=== PATIENT | female | born 1955 | race American Indian/Alaskan Native ===

== ENCOUNTER 2017-10-23 17:14 | Emergency (ER) | payer OTHER ==
[2017-10-23] MEDS ORDERED: MOTRIN PO ONE (21:51)
--- NOTE | 2017-10-23 21:51 | Emergency Department Report ---
ED ENT HPI - General Chief complaint: Earache Stated complaint: EAR PAIN Time Seen by Provider: 10/23/17 21:47 Source: patient Mode of arrival: Ambulatory Limitations: No Limitations - History of Present Illness Initial comments: 62-year-old female comes in for evaluation of right earache 2 days. Patient reports that she was using a zenaida pin to clean her ears out and thinks she went to far. Patient reports that she's been having pussy drainage from right ear. Patient denies any blood coming from right ear. She reports she has been having a low-grade fever no nausea no vomiting does admit to balance been off. She denies any falls. MD complaint: ear pain -: days(s) (2) Location: R ear Severity: moderate Severity scale (0 -10): 5 Quality: aching, sharp Consistency: constant Improves with: none Associated Symptoms: fever (low-grade), hearing loss, discharge from ear - Related Data Home Medications Medication Instructions Recorded Confirmed Last Taken Aspirin [Aspirin BABY CHEW TAB] 81 mg PO BID 04/19/13 04/19/13 04/19/13 09:00 Atorvastatin Calcium [Lipitor] 04/19/13 04/19/13 Unknown Carvedilol [Coreg] 12.5 mg PO BID 04/19/13 04/19/13 04/19/13 09:00 [place]-3/Dha/Epa/Fish Oil [Fish Oil] 1,000 mg PO 04/19/13 04/19/13 Unknown Sertraline [Zoloft] 50 mg PO DAILY 04/19/13 04/19/13 04/19/13 09:00 amLODIPine [Norvasc] 5 mg PO DAILY 04/19/13 04/19/13 04/19/13 18:00 cloNIDine [Catapres] 0.1 mg PO DAILY 04/19/13 04/19/13 04/18/13 23:30 metFORMIN [Glucophage] 500 mg PO BID 04/19/13 04/19/13 04/19/13 11:00 Previous Rx's Medication Instructions Recorded Last Taken Type Amoxicillin/Potassium Clav 1 each PO BID #20 tablet 10/23/17 Unknown Rx [Augmentin 875-125 Tablet] Ciprofloxacin 0.2%(Nf) 4 drops AD BID 7 Days #1 bottle 10/23/17 Unknown Rx [Ciprofloxacin Otic 0.2%(Nf)] Allergies Allergy/AdvReac Type Severity Reaction Status Date / Time codeine Allergy Hives Verified 04/19/13 20:43 ED Dental HPI - General Chief complaint: Earache Stated complaint: EAR PAIN Time Seen by Provider: 10/23/17 21:47 Source: patient Mode of arrival: Ambulatory Limitations: No Limitations - Related Data Home Medications Medication Instructions Recorded Confirmed Last Taken Aspirin [Aspirin BABY CHEW TAB] 81 mg PO BID 04/19/13 04/19/13 04/19/13 09:00 Atorvastatin Calcium [Lipitor] 04/19/13 04/19/13 Unknown Carvedilol [Coreg] 12.5 mg PO BID 04/19/13 04/19/13 04/19/13 09:00 [place]-3/Dha/Epa/Fish Oil [Fish Oil] 1,000 mg PO 04/19/13 04/19/13 Unknown Sertraline [Zoloft] 50 mg PO DAILY 04/19/13 04/19/13 04/19/13 09:00 amLODIPine [Norvasc] 5 mg PO DAILY 04/19/13 04/19/13 04/19/13 18:00 cloNIDine [Catapres] 0.1 mg PO DAILY 04/19/13 04/19/13 04/18/13 23:30 metFORMIN [Glucophage] 500 mg PO BID 04/19/13 04/19/13 04/19/13 11:00 Previous Rx's Medication Instructions Recorded Last Taken Type Amoxicillin/Potassium Clav 1 each PO BID #20 tablet 10/23/17 Unknown Rx [Augmentin 875-125 Tablet] Ciprofloxacin 0.2%(Nf) 4 drops AD BID 7 Days #1 bottle 10/23/17 Unknown Rx [Ciprofloxacin Otic 0.2%(Nf)] Allergies Allergy/AdvReac Type Severity Reaction Status Date / Time codeine Allergy Hives Verified 04/19/13 20:43 ED Review of Systems ROS: Stated complaint: EAR PAIN Other details as noted in HPI Constitutional: fever (low-grade). denies: chills Eyes: denies: eye pain, eye discharge, vision change ENT: ear pain, hearing loss Respiratory: denies: cough, shortness of breath, wheezing Cardiovascular: denies: chest pain, palpitations Endocrine: no symptoms reported Gastrointestinal: denies: abdominal pain, nausea, diarrhea ED Past Medical Hx - Past Medical History Previous Medical History?: Yes Hx Hypertension: Yes Hx Diabetes: Yes Additional medical history: Hx of mitroval prolaspe, Elevated cholesterol, insomnia - Surgical History Past Surgical History?: Yes Additional Surgical History: heart ablation - Social History Smoking Status: Never Smoker Substance Use Type: None - Medications Home Medications: Home Medications Medication Instructions Recorded Confirmed Last Taken Type Aspirin [Aspirin BABY CHEW TAB] 81 mg PO BID 04/19/13 04/19/13 04/19/13 09:00 History Atorvastatin Calcium [Lipitor] 04/19/13 04/19/13 Unknown History Carvedilol [Coreg] 12.5 mg PO BID 04/19/13 04/19/13 04/19/13 09:00 History [place]-3/Dha/Epa/Fish Oil [Fish Oil] 1,000 mg PO 04/19/13 04/19/13 Unknown History Sertraline [Zoloft] 50 mg PO DAILY 04/19/13 04/19/13 04/19/13 09:00 History amLODIPine [Norvasc] 5 mg PO DAILY 04/19/13 04/19/13 04/19/13 18:00 History cloNIDine [Catapres] 0.1 mg PO DAILY 04/19/13 04/19/13 04/18/13 23:30 History metFORMIN [Glucophage] 500 mg PO BID 04/19/13 04/19/13 04/19/13 11:00 History Amoxicillin/Potassium Clav 1 each PO BID #20 tablet 10/23/17 Unknown Rx [Augmentin 875-125 Tablet] Ciprofloxacin 0.2%(Nf) 4 drops AD BID 7 Days #1 bottle 10/23/17 Unknown Rx [Ciprofloxacin Otic 0.2%(Nf)] ED Physical Exam - General Limitations: No Limitations General appearance: alert, in no apparent distress - Head Head exam: Present: atraumatic, normocephalic - Expanded ENT Exam Expanded TM/Canal exam: Erythema: Right TM (canal to the point where cannot appreciate the tympanic membrane), Mastoid Tenderness: Right TM, Canal Discharge: Right TM , Canal Tenderness: Right TM - Neck Neck exam: Present: full ROM. Absent: tenderness - Respiratory Respiratory exam: Present: normal lung sounds bilaterally. Absent: respiratory distress - Cardiovascular Cardiovascular Exam: Present: regular rate, normal rhythm. Absent: systolic murmur, diastolic murmur, rubs, gallop ED Course Vital Signs 10/23/17 17:50 Temperature 99.3 F Pulse Rate 100 H Respiratory 17 Rate Blood Pressure 118/65 O2 Sat by Pulse 97 Oximetry ED Medical Decision Making - Medical Decision Making Patient's been evaluated by this provider fast track. Was able to place the ear wick into the right ear Discussed the patient outpatient oral medication as well as eardrops since she appears to have a little bit of swelling to the mastoid. Discussed the patient I will refer her to ear nose and throat for further evaluation. Patient should take Tylenol or Motrin for pain. Critical care attestation.: If time is entered above; I have spent that time in minutes in the direct care of this critically ill patient, excluding procedure time. ED Disposition Clinical Impression: Mastoiditis of right side Otitis externa Qualifiers: Otitis externa type: unspecified type Chronicity: acute Laterality: right Qualified Code(s): H60.501 - Unspecified acute noninfective otitis externa, right ear Disposition: - TO HOME OR SELFCARE Is pt being admited?: No Does the pt Need Aspirin: No Condition: Stable Instructions: Otitis Externa (ED), Mastoiditis in Children (ED) Additional Instructions: Take antibiotics as prescribed. You can take Tylenol or Motrin for pain. Please avoid swimming and getting your ears wet. Please follow-up with the ear nose and throat provider. Prescriptions: Amoxicillin/Potassium Clav [Augmentin 875-125 Tablet] 1 each PO BID #20 tablet Ciprofloxacin 0.2%(Nf) [Ciprofloxacin Otic 0.2%(Nf)] 4 drops AD BID 7 Days #1 bottle Referrals: ROSLYN GODINEZ MD [Primary Care Provider] - 3-5 Days ENT [facility] [Provider Group] - 3-5 Days Forms: Work/School Release Form(ED)
[2017-10-23 22:26] VITALS: BP 166/76
== END 2017-10-23 22:23 | disposition home or self-care (01) ==
LOC: ED 17:14
DX: H70.91 Unspecified mastoiditis, right ear (principal); H60.501 Unspecified acute noninfective otitis externa, right ear; I10 Essential (primary) hypertension; E11.9 Type 2 diabetes mellitus without complications; Z88.5 Allergy status to narcotic agent; Z79.82 Long term (current) use of aspirin
CPT/HCPCS: 99282

== ENCOUNTER 2019-02-03 04:06 | Emergency (ER) | payer OTHER ==
--- NOTE | 2019-02-03 04:51 | XRay Report ---
CHEST 1 VIEW 02/03/2019 4:37 AM INDICATION / CLINICAL INFORMATION: Chest Pain. COMPARISON: None available. FINDINGS: SUPPORT DEVICES: None. HEART / MEDIASTINUM: No significant abnormality. LUNGS / PLEURA: No significant pulmonary or pleural abnormality. No pneumothorax. ADDITIONAL FINDINGS: No significant additional findings. IMPRESSION: 1. No acute findings. Signer Name: Sandro Villanueva MD Signed: 02/03/2019 4:47 AM Workstation Name: [id number]
[2019-02-03 05:19] LABS: Basophils % (Auto) 0.4 % (0.0-1.8); Eosinophils # (Auto) 0.2 K/mm3 (0.0-0.4); Hematocrit 40.1 % (30.3-42.9); Hemoglobin 13.4 gm/dl (10.1-14.3); Lymphocytes # (Auto) 2.5 K/mm3 (1.2-5.4); Lymphocytes % (Auto) 30.3 % (13.4-35.0); Mean Corpuscular HGB Conc 34 % (30-34); Mean Corpuscular Volume 90 fl (79-97); Monocytes # (Auto) 0.7 K/mm3 (0.0-0.8); Platelet Count 239 K/mm3 (140-440); Red Blood Count 4.46 M/mm3 (3.65-5.03); Red Cell Distribution Width 14.2 % (13.2-15.2)
[2019-02-03 05:41] LABS: BUN/Creatinine Ratio 14; Blood Urea Nitrogen 10 mg/dL (7-17); Calcium 9.4 mg/dL (8.4-10.2); Hemolysis Index 2
[2019-02-03] MEDS ORDERED: IBUPROFEN 800 MG TAB PO ONE (06:17)
--- NOTE | 2019-02-03 06:43 | Emergency Department Report ---
ED Chest Pain HPI - General Chief Complaint: Chest Pain Stated Complaint: CHEST PAIN, HEADACHES Time Seen by Provider: 02/03/19 06:03 Source: patient Mode of arrival: Ambulatory Limitations: No Limitations - History of Present Illness Initial Comments: 63-year-old -[place] female presents to the emergency department from home with a complaint of some left-sided chest pain. Overall this has been going on intermittently over the past few days but it started this morning around 3 AM. The pain does not radiate. It is sharp. Patient says that the pain is sometimes reproducible depending on how she moves. She denies any nausea, vomiting, shortness of breath, back pain, diaphoresis, fever. Patient did not take anything for her symptoms prior to presentation. Patient also complains of some chronic palpitations and chronic sinus headache. She has not taken anything for any of her symptoms prior to arrival today. She has a past medical history of diabetes, hypertension, mitral valve prolapse, elevated cholesterol and has a previous heart ablation for those palpitations. She denies any tobacco or illicit drug use. No recent travel or sick contacts at home. Her primary care physician is Dr. Cassius Hankins and her chief security officer is Dr. Eric Hankins. Severity scale (0 -10): 1 - Related Data Home Medications Medication Instructions Recorded Confirmed Last Taken Aspirin [Aspirin BABY CHEW TAB] 81 mg PO BID 04/19/13 04/19/13 04/19/13 09:00 Atorvastatin Calcium [Lipitor] 04/19/13 04/19/13 Unknown Carvedilol [Coreg] 12.5 mg PO BID 04/19/13 04/19/13 04/19/13 09:00 [place]-3/Dha/Epa/Fish Oil [Fish Oil] 1,000 mg PO 04/19/13 04/19/13 Unknown Sertraline [Zoloft] 50 mg PO DAILY 04/19/13 04/19/13 04/19/13 09:00 amLODIPine [Norvasc] 5 mg PO DAILY 04/19/13 04/19/13 04/19/13 18:00 cloNIDine [Catapres] 0.1 mg PO DAILY 04/19/13 04/19/13 04/18/13 23:30 metFORMIN [Glucophage] 500 mg PO BID 04/19/13 04/19/13 04/19/13 11:00 Previous Rx's Medication Instructions Recorded Last Taken Type Amoxicillin/Potassium Clav 1 each PO BID #20 tablet 10/23/17 Unknown Rx [Augmentin 875-125 Tablet] Ciprofloxacin 0.2%(Nf) 4 drops AD BID 7 Days #1 bottle 10/23/17 Unknown Rx [Ciprofloxacin Otic 0.2%(Nf)] Allergies Allergy/AdvReac Type Severity Reaction Status Date / Time codeine Allergy Hives Verified 04/19/13 20:43 Heart Score - HEART Score History: Slightly suspicious EKG: Normal Age: 45-65 Risk factors: > 3 risk factors or hx of atherosclerotic disease Troponin: < normal limit HEART Score: 3 - Critical Actions Critical Actions: 0-3 pts:0.9-1.7%risk of adverse cardiac event.Candidate for discharge ED Review of Systems ROS: Stated complaint: CHEST PAIN, HEADACHES Other details as noted in HPI Comment: All other systems reviewed and negative Constitutional: denies: chills, fever Eyes: denies: eye pain, vision change ENT: denies: ear pain, throat pain Respiratory: denies: cough, shortness of breath Cardiovascular: chest pain, palpitations Gastrointestinal: denies: abdominal pain, vomiting Genitourinary: denies: dysuria, discharge Musculoskeletal: denies: back pain, arthralgia Skin: denies: rash, lesions Neurological: headache. denies: weakness, numbness, paresthesias ED Past Medical Hx - Past Medical History Previous Medical History?: Yes Hx Hypertension: Yes Hx Diabetes: Yes Additional medical history: Hx of mitroval prolaspe, Elevated cholesterol, insomnia - Surgical History Past Surgical History?: Yes Additional Surgical History: heart ablation - Social History Smoking Status: Never Smoker Substance Use Type: None - Medications Home Medications: Home Medications Medication Instructions Recorded Confirmed Last Taken Type Aspirin [Aspirin BABY CHEW TAB] 81 mg PO BID 04/19/13 04/19/13 04/19/13 09:00 History Atorvastatin Calcium [Lipitor] 04/19/13 04/19/13 Unknown History Carvedilol [Coreg] 12.5 mg PO BID 04/19/13 04/19/13 04/19/13 09:00 History [place]-3/Dha/Epa/Fish Oil [Fish Oil] 1,000 mg PO 04/19/13 04/19/13 Unknown History Sertraline [Zoloft] 50 mg PO DAILY 04/19/13 04/19/13 04/19/13 09:00 History amLODIPine [Norvasc] 5 mg PO DAILY 04/19/13 04/19/13 04/19/13 18:00 History cloNIDine [Catapres] 0.1 mg PO DAILY 04/19/13 04/19/13 04/18/13 23:30 History metFORMIN [Glucophage] 500 mg PO BID 04/19/13 04/19/13 04/19/13 11:00 History Amoxicillin/Potassium Clav 1 each PO BID #20 tablet 10/23/17 Unknown Rx [Augmentin 875-125 Tablet] Ciprofloxacin 0.2%(Nf) 4 drops AD BID 7 Days #1 bottle 10/23/17 Unknown Rx [Ciprofloxacin Otic 0.2%(Nf)] ED Physical Exam - General Limitations: No Limitations - Other Other exam information: GENERAL: The patient is well-developed well-nourished. HENT: Normocephalic. Atraumatic. Patient has moist mucous membranes. EYES: Extraocular motions are intact. Pupils equal reactive to light bilaterally. NECK: Supple. Trachea is midline. CHEST/LUNGS: Clear to auscultation. There is no respiratory distress noted. There is some reproducible tenderness to palpation along the left side of the chest. No crepitus or deformity. HEART/CARDIOVASCULAR: Regular. There is no tachycardia. There is no murmur. ABDOMEN: Abdomen is soft, nontender. Patient has normal bowel sounds. There is no abdominal distention. SKIN: Skin is warm and dry. NEURO: The patient is awake, alert, and oriented. The patient is cooperative. The patient has no focal neurologic deficits. Normal speech. Cranial nerves II through XII grossly intact. MUSCULOSKELETAL: There is no tenderness or deformity. There is no limitation range of motion. There is no evidence of acute injury. ED Course Vital Signs 02/03/19 02/03/19 02/03/19 04:17 04:52 05:00 Temperature 98.8 F 98.2 F Pulse Rate 85 74 76 Respiratory 20 15 20 Rate Blood Pressure 143/70 129/64 Blood Pressure 124/67 [Left] O2 Sat by Pulse 94 96 97 Oximetry 02/03/19 02/03/19 06:00 06:40 Temperature Pulse Rate 65 Respiratory 19 19 Rate Blood Pressure 137/62 Blood Pressure [Left] O2 Sat by Pulse 96 Oximetry JAVIER score - Javier Score Age > 65: (0) No Aspirin use within the Past 7 Days: (0) No 3 or more CAD Risk Factors: (1) Yes 2 or more Angina events in past 24 hrs: (1) Yes (if the pain is considered angina, may be consistent with costochondritis) Known CAD with more than 50% Stenosis: (0) No Elevated Cardiac Markers: (0) No ST Deviation Greater than 0.5mm: (0) No JAVIER Score: 2 ED Medical Decision Making - Lab Data Result diagrams: 02/03/19 05:09 02/03/19 05:09 - EKG Data -: EKG Interpreted by Me EKG shows normal: sinus rhythm, axis, intervals, QRS complexes, ST-T waves Rate: normal - EKG Data When compared to previous EKG there are: no significant change Interpretation: unchanged when compared t (05/18/14) - Radiology Data Radiology results: image reviewed interpreted by me: Chest x-ray does not show any acute process. There are no pleural effusions, obvious pneumonia and there is no pneumothorax. - Medical Decision Making This patient presents to the emergency department with some chest pain, palpitations and sinus headaches. Her main complaint was the chest pain. It has been going on intermittently for the past few days but was constant at first starting at about 3 AM. No complaints of any nausea, vomiting, shortness of br eath. EKG is normal without ST elevation KS, ischemia or dysrhythmia. Chest x- ray does not show any acute process including pneumonia, pleural effusions, pneumothorax, focal consolidation. Patient's labs have been unremarkable including negative troponins 2 and a negative d-dimer. On examination the pain is reproducible to palpation but no crepitus or deformity. The pain was markedly decreased before and the ibuprofen was given and then appears to have resolved after treatment. Vital signs stable throughout her ED course. The patient has good follow-up with both primary care and cardiology. She appears safe for discharge home at this time. She will follow up either today or Wednesday with her chief security officer but understands to return to the emergency department immediately with any return of her chest pain, worsening of her symptoms, or with any acute distress. - Differential Diagnosis costochondritis, KS, PE, dysrhythmia Critical Care Time: No Critical care attestation.: If time is entered above; I have spent that time in minutes in the direct care of this critically ill patient, excluding procedure time. ED Disposition Clinical Impression: Intermittent palpitations Chest pain Qualifiers: Chest pain type: unspecified Qualified Code(s): R07.9 - Chest pain, unspecified Disposition: TO HOME OR SELFCARE Is pt being admited?: No Condition: Stable Instructions: Chest Pain (ED), Costochondritis (ED), Palpitations (ED) Additional Instructions: Please follow-up with your chief security officer in the next few days. It is also recommended to follow-up with your primary care physician. Return to the emergency department with any return of your chest pain, worsening of your symptoms, or with any acute distress. Referrals: ERIC HANKINS MD [Staff Physician] - 2-3 Days CASSIUS HANKINS MD [Referring] - 2-3 Days Forms: Work/School Release Form(ED) Time of Disposition: 08:26
[2019-02-03 08:33] VITALS: BP 117/60
== END 2019-02-03 08:34 | disposition home or self-care (01) ==
LOC: ED 04:06
DX: R07.89 Other chest pain (principal); R00.2 Palpitations; E11.9 Type 2 diabetes mellitus without complications; E78.00 Pure hypercholesterolemia, unspecified; G47.00 Insomnia, unspecified; Z88.5 Allergy status to narcotic agent; Z79.82 Long term (current) use of aspirin; Z79.899 Other long term (current) drug therapy
CPT/HCPCS: 36415; 71045; 80048; 84484; 85025; 85379; 93005; 93010; 99284